=== PATIENT | female | born 1945 | race Native Hawaiian/Other Pacific Islander ===

== ENCOUNTER 2021-08-31 16:40 | Outpatient (CLI) | payer OTHER | END 2021-08-31 21:07 | disposition home or self-care (01) | LOC: RAD 16:40 | PROVIDERS: ATTEND Nurse Practitioner Family | DX: R06.02 Shortness of breath (principal) ==

== ENCOUNTER 2022-08-16 15:59 | Observation (INO) | payer OTHER ==
[~2022-08-16] VITALS: Ht 157.5 cm; Wt 68.1 kg
[2022-08-16] VITALS (9 sets, daily range): BP systolic 120–175; BP diastolic 48–69; TEMP 92–93.6
[2022-08-16 17:25] LABS: PLATELET COUNT 205 K/uL (152-353)
[2022-08-16 17:33] LABS: POTASSIUM 4.2 mmol/L (3.6-5.2)
[2022-08-17 00:01] VITALS: BP 134/37; TEMP 97.9; Ht 157.5 cm; Wt 68.1 kg
[2022-08-17 04:00] VITALS: BP 120/39; TEMP 98.8
[2022-08-17 07:52] VITALS: BP 113/42; TEMP 98.2
[2022-08-17] MEDS ORDERED: CARV12.5 PO (10:36)
[2022-08-17] MEDS ORDERED: ACYCLOVIR800 MG PO (10:36)
[2022-08-17] MEDS ORDERED: K-TABS10 MEQ PO (10:36)
[2022-08-17] MEDS ORDERED: TRAMADOL HYDROC50 MG PO (10:37)
[2022-08-17] MEDS ORDERED: PRED FORTE1 % OPTH (10:38)
[2022-08-17] MEDS ORDERED: TIMOLOL MALEATE OPTH (10:39)
[2022-08-17] MEDS ORDERED: FURO40TA93 PO (10:40)
[2022-08-17] MEDS ORDERED: LANTUS SOL100 UNIT/M SC (10:41)
[2022-08-17] MEDS ORDERED: EUTHYROX112 MCG PO (10:42)
[2022-08-17] MEDS ORDERED: HUMALOG KW100 UNIT/M SC (10:43)
[2022-08-17] MEDS ORDERED: CLARITIN10 M1 PO (10:43)
[2022-08-17] MEDS ORDERED: HYZAAR1 TA2 PO (10:44)
[2022-08-17] MEDS ORDERED: ASA LOW DOSE81 MG PO (10:45)
[2022-08-17] MEDS ORDERED: CALTRATE 600+D1 TAB PO (10:45)
[2022-08-17] MEDS ORDERED: PRESERVISION AREDS 2 PO (10:46)
[2022-08-17] MEDS ORDERED: ASCO500T18 PO (10:46)
[2022-08-17] MEDS ORDERED: THERMOTABS PO (10:47)
[2022-08-17] MEDS ORDERED: LANTUS100 UNIT/M SC (11:05)
== END 2022-08-17 12:25 | disposition home or self-care (01) ==
LOC: ED 15:59 → MED/SURG 21:45
PROVIDERS: ADMIT Emergency Medicine Emergency Medical Services; ATTEND Internal Medicine
DX: E11.649 Type 2 diabetes mellitus with hypoglycemia without coma (principal); I10 Essential (primary) hypertension; Z85.79 Personal history of other malignant neoplasms of lymphoid, hematopoietic and related tissues; R68.0 Hypothermia, not associated with low environmental temperature; Z79.4 Long term (current) use of insulin; Z51.81 Encounter for therapeutic drug level monitoring; R41.82 Altered mental status, unspecified
CPT/HCPCS: 51702; 80053; 81002; 82948; 83735; 84484; 85027; 85610; 87635; 93005; 96372; 99220; 99283; G0378; J1815; U0003